=== PATIENT | male | born 1980 | race Two or more races ===

== ENCOUNTER 2016-08-19 19:06 | Emergency (ER) | payer OTHER ==
[~2016-08-19] VITALS: Ht 157.5 cm; Wt 59.0 kg
[~2016-08-19 19:06] MED LIST: IBUPROFEN600 MG ORAL
[2016-08-19 19:15] VITALS: BP 125/65
[2016-08-19] MEDS ORDERED: KENALOG1 APPLIC TOPIC (19:40)
[2016-08-19 19:55] VITALS: BP 125/65
--- NOTE | 2016-08-19 20:30 | Emergency Room Report ---
History of Present Illness General Chief Complaint: Skin Rash/Abscess Source: Patient Present Illness HPI 35-year-old male complaining of rash on bilateral forearms times one day. 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 States that today his forearm started becoming red and irritated and itchy. States that he saw his employer sent him over for evaluation in the ER. Patient denies any provoking or relieving factors and has not taken any medications. Patient denies any allergies to any substances or hx of contact dermatitis. Allergies: Coded Allergies: No Known Allergies (Unverified , 11/27/15) Patient History Past Medical History: see triage record Immunizations: UTD Reviewed Nursing Documentation: PMH: Agreed, PSxH: Agreed Nursing Documentation-PMH Past Medical History: No Stated History Review of Systems All Other Systems: negative except mentioned in HPI Physical Exam Vital Signs Date Time Temp Pulse Resp B/P Pulse Ox O2 Delivery O2 Flow Rate FiO2 08/19/16 19:11 98.1 78 15 125/65 98 Room Air Sp02 EP Interpretation: reviewed, normal General Appearance: no apparent distress, alert, GCS 15, non-toxic Head: normocephalic, atraumatic Eyes: bilateral eye normal inspection ENT: hearing grossly normal, no angioedema, normal voice Neck: full range of motion, supple/symm/no masses Respiratory: chest non-tender, lungs clear, normal breath sounds, speaking full sentences Cardiovascular #1: regular rate, rhythm, no edema Cardiovascular #2: 2+ radial (R), 2+ radial (L) Musculoskeletal: back normal, gait/station normal, normal range of motion, non- tender Neurologic: alert, oriented x3, responsive, motor strength/tone normal, sensory intact, speech normal Psychiatric: judgement/insight normal, memory normal, mood/affect normal, no suicidal/homicidal ideation Reflexes: 3+ bicep (R), 3+ bicep (L), 3+ tricep (R), 3+ tricep (L), 3+ knee (R) , 3+ knee (L) Skin: normal color, warm/dry, well hydrated, rash - Erythematous large patch across bilateral forearms, NTTP w/o excessive heat or induration. Excoriations present. Lymphatic: no adenopathy Medical Decision Making PA Attestation Dr. Dawn is my supervising physician with whom patient management has been discussed with. Diagnostic Impression: Primary Impression: Contact dermatitis and eczema due to detergents ER Course Pt. presents to the ED c/o rash x 1 day Ddx considered but are not limited to allergic contact dermatitis, eczema, cellulitis, scabies Vital signs: are WNL, pt. is afebrile H&PE are most consistent with allergic contact dermatitis. ORDERS: none required at this time, the diagnosis is clinical ED INTERVENTIONS: none required at this time. DISCHARGE: At this time pt. is stable for d/c to home. Will provide printed patient care instructions, and any necessary prescriptions. Care plan and follow up instructions have been discussed with the patient prior to discharge. Last Vital Signs Date Time Temp Pulse Resp B/P Pulse Ox O2 Delivery O2 Flow Rate FiO2 08/19/16 19:55 98.1 78 15 125/65 98 Room Air Disposition: HOME, SELF-CARE Condition: Stable Scripts Triamcinolone Acetonide (Triamcinolone Acetonide) 15 Gm Oint...g. 1 APPLIC TOPIC TID for 14 Days, #60 GM Prov: JEFFERSON ANTUNEZ 08/19/16 Patient Instructions: JEFFERSON Moscoso Aug 19, 2016 20:30
== END 2016-08-19 19:55 | disposition home or self-care (01) ==
LOC: EMR 19:36
DX: L24.0 Irritant contact dermatitis due to detergents (principal)
CPT/HCPCS: 99283